=== PATIENT | male | born 1975 | race African-American/Black ===

== ENCOUNTER 2016-05-23 10:06 | Outpatient (CLI) | payer OTHER ==
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
== END 2016-05-23 10:07 | disposition home or self-care (01) ==
LOC: MADRAD 10:06
PROVIDERS: ATTEND Family Medicine
DX: M25.521 Pain in right elbow (principal)

== ENCOUNTER 2019-01-26 10:39 | Emergency (ER) | payer OTHER, SELFPAY ==
[2019-01-26] MEDS ORDERED: Aspirin Chewable 81 MG TAB ONE ×2 (11:03)
[2019-01-26 11:11] LABS: #Basophils 0.1 thou/uL (0.0-0.2); #Eosinphils 0.2 thou/uL (0.0-0.7); #Lymphocytes 2.9 thou/uL (1.20-3.40); #Monocytes 0.7 thou/uL (0.11-0.59); #Neutrophils 6.2 thou/uL (1.40-6.50); %Basophils 1.4 % (0.0-1.0); %Eosinophils 1.9 % (0.0-10.0); %Lymphocytes 28.3 % (21.0-51.0); %Monocytes 7.1 % (0.0-10.0); %Neutrophils 61.3 % (42.0-75.0); Hemoglobin 17.9 g/dL (14.0-18.0); Mean Corpuscular HGB CONC 32.5 g/dL (32.0-36.0); Mean Corpuscular Hemoglobin 30.2 pg (27.0-31.0); Mean Platelet Volume 7.8 fL (7.4-10.4); Platelet Count 280 thou/uL (130-400); RBC Distribution Width 11.1 % (11.5-14.5); Red Blood Cell (RBC) Count 5.91 mill/uL (4.70-6.10); White Blood Cell (WBC) Count 10.1 thou/uL (4.8-10.8)
--- NOTE | 2019-01-26 11:20 | RAD ---
Portable frontal chest radiograph: 01/26/2019 COMPARISON: None HISTORY: Short of breath FINDINGS: Lungs are clear. Heart and mediastinal contours appear within normal limits. IMPRESSION: No acute findings.
[2019-01-26 11:33] LABS: ALT (SGPT) 33 U/L (8-55); AST (SGOT) 28 U/L (5-34); Albumin 4.8 g/dL (3.5-5.0); Alkaline Phosphatase 80 U/L (40-110); Anion Gap 18 mmol/L (10-20); BUN (Urea Nitrogen) 12 mg/dL (8.9-20.6); Bilirubin, Total 0.6 mg/dL (0.2-1.2); Calc. Creatinine Clearance 0 mL/min (70-130); Carbon Dioxide 20 mmol/L (22-29); Chloride 104 mmol/L (98-107); Estimated GFR-MDRD 87; Globulin 3.2 g/dL (2.4-3.5); Glucose 122 mg/dL (70-105); Potassium 4.2 mmol/L (3.5-5.1); Sodium 138 mmol/L (136-145)
[2019-01-26 11:50] LABS: CKMB 3.9 ng/mL (0-6.6)
[2019-01-26] MEDS ORDERED: Nitroglycerin 0.4 MG TAB 1 EACH ONE (11:59)
[2019-01-26] MEDS ORDERED: Morphine 4 MG/ML VIAL ONE (11:59)
[2019-01-26] MEDS ORDERED: Ondansetron PF 4 MG/2 ML Vial ONE (11:59)
[2019-01-26] MEDS ORDERED: Enoxaparin Sodium 30 MG/0.3 ML SYRINGE ONE (12:09)
[2019-01-26] MEDS ORDERED: Enoxaparin Sodium 80 MG/0.8 ML SYRINGE ONE (12:09)
== END 2019-01-26 13:31 | disposition short-term general hospital (02) ==
LOC: MADERS 10:39
DX: I21.4 Non-ST elevation (NSTEMI) myocardial infarction (principal); Z87.891 Personal history of nicotine dependence
CPT/HCPCS: 71045; 80053; 82553; 83880; 84484; 85025; 93005; 96372; 96374; J1650; J2270; J2405

== ENCOUNTER 2023-04-05 08:49 | Outpatient (CLI) | payer OTHER | END 2023-04-05 08:50 | disposition home or self-care (01) | LOC: MADRAD 08:49 | PROVIDERS: ATTEND Physician Assistant | DX: M25.571 Pain in right ankle and joints of right foot (principal) ==

== ENCOUNTER 2023-11-17 06:06 | Emergency (ER) | payer SELFPAY ==
[2023-11-17] MEDS ORDERED: Dexamethasone 4 MG TAB ONE (06:48)
[2023-11-17] MEDS ORDERED: Ketorolac Tromethamine 60 MG/2 ML VIAL ONE (07:18)
== END 2023-11-17 07:53 | disposition home or self-care (01) ==
LOC: MADERS 06:06
DX: K08.89 Other specified disorders of teeth and supporting structures (principal); I10 Essential (primary) hypertension; Z87.891 Personal history of nicotine dependence
CPT/HCPCS: 96372; 99282; J1885; J8540